=== PATIENT | male | born 1985 | race Caucasian/White ===

== ENCOUNTER 2023-06-02 15:43 | Emergency (ER) | payer OTHER ==
[~2023-06-02] VITALS: Ht 170.2 cm; Wt 75.0 kg
[2023-06-02] MEDS ORDERED: GUAI-1217 PO (16:00)
[2023-06-02 16:58] LABS: BASOPHILS % (AUTO) 0.7 % (0.0-2.0); EOSINOPHILS % (AUTO) 6.7 % (1.0-6.0); HEMATOCRIT 40.8 % (41-53); LYMPHOCYTES # (AUTO) 2.3 K/uL (1.0-4.8); MEAN CORPUSCULAR HEMOGLOBIN 30.6 pg (26.0-34.0); MEAN CORPUSCULAR HGB CONC 34.3 G/dL (31.0-37.0); MEAN CORPUSCULAR VOLUME 89 fL (80-100); MONOCYTES # (AUTO) 0.8 K/uL (0.1-1.0); MONOCYTES % (AUTO) 5.6 % (2.0-9.0); PLATELET COUNT (AUTO) 418 K/uL (150-450); RED BLOOD CELL COUNT(AUTO) 4.57 MIL/uL (4.50-5.90); RED CELL DISTRIBUTION WIDTH 14.3 % (11.5-14.5)
[2023-06-02 17:08] LABS: ANION GAP 10 mmol/L (8-16); CALCIUM, TOTAL 8.8 mg/dL (8.8-10.5); CARBON DIOXIDE 26 mmol/L (22-29); CHLORIDE 103 mmol/L (98-107); CREATININE 1.21 mg/dL (0.60-1.30); GLOMERULAR FILTR. RATE CALC > 60 mL/min (>60); GLUCOSE,RANDOM 94 mg/dL (70-110); POTASSIUM 3.7 mmol/L (3.5-5.1); SODIUM SERUM 139 mmol/L (136-145); UREA NITROGEN, BLOOD 20 mg/dL (7-18)
[2023-06-02] MEDS ORDERED: 0.9% SODIUM CHLORIDE 5 ML NEB SOLUTION NEB ONE (17:09)
[2023-06-02] MEDS: ALBUTEROL SULFATE 2.5 MG/0.5 ML 5 ML NEB SOLUTION NEB ONE (17:12)
[2023-06-02] MEDS: IPRATROPIUM BROMIDE 0.5 MG/2.5 ML NEB SOLUTION NEB ONE (17:12)
[2023-06-02 17:14] LABS: ALANINE AMINOTRANSFERASE 24 U/L (12-78); ALBUMIN 4.1 g/dL (3.4-5.0); ALKALINE PHOSPHATASE 84 U/L (46-116); ASPARTATE AMINOTRANSFERASE 20 U/L (15-37); BILIRUBIN,TOTAL 0.3 mg/dL (0.1-1.0)
[2023-06-02 17:16] LABS: TROPONIN I-HIGH SENSITIVITY 4 ng/L (<76)
[2023-06-02 17:27] VITALS: PULSE 60; RESP 16; O2SAT 98
[2023-06-02 17:28] VITALS: PULSE 60; RESP 16; O2SAT 98
[2023-06-02 17:38] LABS: B-TYPE NATRIURETIC PEPTIDE 20 pg/mL (0-100)
[2023-06-02 18:12] LABS: COVID AG,FIA SOURCE NASAL SWAB
[2023-06-02 18:30] VITALS: PULSE 74; RESP 18; O2SAT 99
[2023-06-02 18:55] LABS: SARS-COV2 (COVID) ANTIGEN,FIA Negative (Negative)
[2023-06-02 18:58] LABS: INFLUENZA TYPE A NEGATIVE FOR TYPE A (NEGATIVE); INFLUENZA TYPE B NEGATIVE FOR TYPE B (NEGATIVE)
[2023-06-02] MEDS: ALBUTEROL SULFATE HFA 90 MCG/PUFF 8 GM INHALER IH ONE (19:54)
[2023-06-02] MEDS ORDERED: AZITHROMYCIN 500 MG TABLET PO ONE (20:00)
[2023-06-02] MEDS ORDERED: BENZ-227 PO (20:07)
[2023-06-02] MEDS ORDERED: AZIT250T9 PO (20:07)
[2023-06-02 20:10] VITALS: PULSE 74; RESP 18; O2SAT 99
[2023-06-02 20:35] VITALS: BP 129/80; PULSE 71; RESP 18; TEMP 97.3
== END 2023-06-02 21:35 | disposition home or self-care (01) ==
LOC: EMS 15:43
DX: J18.9 Pneumonia, unspecified organism (principal); J45.909 Unspecified asthma, uncomplicated; Z20.822 Contact with and (suspected) exposure to COVID-19
CPT/HCPCS: 99285; 71045; 87426; 80053; 83880; 84484; 85025; 85379; 87040; 87804; 36415; 94644; 93005; Q9967; J3535